=== PATIENT | female | born 2000 | race African-American/Black ===

== ENCOUNTER 2020-12-16 10:16 | Outpatient (CLI) | payer OTHER, SELFPAY ==
--- NOTE | ~2020-12-16 | US_ITS ---
EXAMINATION: US OB <= 14 weeks fetus DATE: 12/16/2020 10:47 INDICATION: Encounter for supervision of normal . TECHNIQUE: Real-time transabdominal pelvic ultrasound was performed. COMPARISON: None. FINDINGS: The uterus measures 9.9 x 8.9 x 8.1 cm. There is an intrauterine gestational sac. A yolk sac is iden tified. The crown rump length measures 4.0 cm, which correlates with an estimated gestational age of 11 weeks and 0 day(s) (+/-) 1 week(s) and 0 day(s). heart motion is identified measuring 159 beats per minute (bpm) by M-mode Doppler. The ovaries are not visualized. There is no free fluid in the pelvis. IMPRESSION: 1. Single living intrauterine gestation with estimated date of delivery of 07/07/2021. Reviewed, dictated and finalized at location A. IMPRESSION: 1. Single living intrauterine gestation with estimated date of delivery of 06/18.
== END 2020-12-16 10:17 | disposition home or self-care (01) ==
PROVIDERS: PCP Pediatrics; Visit Provider Physician Assistant
DX: Z34.91 Encounter for supervision of normal pregnancy, unspecified, first trimester (principal)
CPT/HCPCS: 76801

== ENCOUNTER 2020-12-26 16:28 | Emergency (ER) | payer OTHER, SELFPAY ==
[2020-12-26 17:03] VITALS: BP 112/75; PULSE 104; RESP 16; TEMP 36.6; O2SAT 100
[2020-12-26 17:19] LABS: Basophils Percent Auto 0.2 % (0.2-1.2); Eosinophils Percent Auto 0.7 % (0-4.4); Hematocrit 32.1 % (37.0-47.0); Hemoglobin 9.9 g/dL (12.0-15.0); Immature Granulocyte Absolute 0.01 K/mm3 (0.00-0.031); Immature Granulocyte Percent A 0.2 % (0-0.5); Lymphocytes Absolute Auto 1.34 K/mm3 (0.9-3.2); Lymphocytes Percent Auto 22.6 % (18.3-44.2); Mean Corpuscular HGB Conc 30.8 g/dl (32-36); Mean Corpuscular Volume 84.3 fl (80-100); Mean Platelet Volume 9.6 fl (7.4-10.4); Monocytes Absolute Auto 0.4 K/mm3 (0.1-0.6); Monocytes Percent Auto 5.9 % (2.6-8.5); Neutrophils Absolute Auto 4.2 K/mm3 (1.3-6.7); Neutrophils Percent Auto 70.4 % (45.5-73.1); Platelet Count Result 257 k/mm3 (150-375); Red Blood Count 3.81 M/mm3 (4.2-5.4); Red Cell Distribution Width 15.5 % (11.5-14.5); White Blood Count 5.9 K/mm3 (4.5-10.0)
[2020-12-26 17:32] LABS: Alanine Aminotransferase 17 U/L (4-35); Alkaline Phosphatase 52 U/L (38-126); Anion Gap 7 mmol/L (8-16); Aspartate Amino Transferase 25 U/L (14-36); Bilirubin,Total 0.2 mg/dL (0.2-1.3); Blood Urea Nitrogen 7 mg/dL (7-17); Calcium 9.2 mg/dL (8.4-10.2); Carbon Dioxide 21 mmol/L (22-30); Chloride 105 mmol/L (98-107); Estimated Glomerular Filt Rate > 60; Glucose 148 mg/dL (65-110); Lipase 83 U/L (23-300); Potassium 3.5 mmol/L (3.4-5.0); Sodium 133 mmol/L (137-145)
--- NOTE | 2020-12-26 19:09 | PC.NURSE ---
patient states that she cant wait any longer to be see, left triage area
== END 2020-12-26 19:09 | disposition left against medical advice (07) ==
PROVIDERS: Emergency Provider Emergency Medicine; PCP Pediatrics
DX: R42 Dizziness and giddiness (principal)
CPT/HCPCS: 36415; 80053; 83690; 84702; 85025; 99199

== ENCOUNTER 2021-04-27 16:10 | Observation (INO) | payer OTHER, SELFPAY ==
[2021-04-27] VITALS (21 sets, daily range): BP systolic 98–120; BP diastolic 56–98; PULSE 32–124; O2SAT 85–100; BMI 23.1
--- NOTE | 2021-04-27 17:04 | OBADM ---
This patient, Marquise Morales, admitted to the OB room OB Post 115 for observation. Patient/family oriented to hospital policies and general routines including ID bracelet, bed and alarms, visiting hours, pain management, procedures, bathroom and other care routines, personal items, smoking policy, room service/diet, and visiting hours. Patient/Family are encouraged to report perceived risks to care and to ask questions if they do not understand what they are told or what they should do.
[2021-04-27] MEDS: TERBUTALINE SULFATE 1 MG/ML VIAL 0.25 MG SUB-Q (17:44)
[2021-04-27 17:53] LABS: Add Urine Microscopic? YES; Appearance Urine Cloudy (Clear); Bacteria Urine Trace /hpf; Bilirubin Urine Negative (Negative); Blood Urine Negative (Negative); Color Urine Straw (Yellow); Glucose Urine UA Negative (Negative); Ketones Urine Negative (Negative); Leukocyte Esterase Ur Negative LEU/UL (Negative); Mucus Urine Rare /lpf; Nitrate Urine Negative (Negative); Protein Urine Negative (Negative); RBC Urine 0-2 /hpf (0-2); Specific Grav Ur 1.002 (1.001-1.035); Squamous Epithelial Cell Urine Many /hpf (Few); Urobilinogen Urine Negative mg/dL (<2.0); WBC Urine 0-3 /hpf
--- NOTE | 2021-05-22 07:42 | P.PNOB_ITS ---
OB - Triage/Final Diagnosis Visit Information Comments/Additional reasons for admission: I have assessed the risk for this patient, Marquise Morales, and determined that she would benefit from observation care. Evaluation Laboratory results: Laboratory Tests 04/27/21 17:33 Urine Color Straw Urine Appearance Cloudy H Urine pH 6.0 Ur Specific [place] 1.002 Urine Protein Negative Urine Glucose (UA) Negative Urine Ketones Negative Ur Blood (Man) Negative Urine Nitrate Negative Urine Bilirubin Negative Urine Urobilinogen Negative Leukocyte Esterase Rfl Negative Urine RBC 0-2 Urine WBC 0-3 Ur Squamous Epith Cells Many H Urine Bacteria Trace Urine Mucus Rare Final Diagnosis (1) False labor: Code(s): O47.9 - False labor, unspecified Status: Acute
== END 2021-04-27 19:07 | disposition home or self-care (01) ==
PROVIDERS: Advanced Practice Midwife; Admitting Provider Obstetrics & Gynecology; Visit Provider Obstetrics & Gynecology
DX: O47.03 False labor before 37 completed weeks of gestation, third trimester (principal); Z3A.29 29 weeks gestation of pregnancy
CPT/HCPCS: 81001; 96372; G0378; G0379; J3105

== ENCOUNTER 2021-06-09 15:16 | Observation (INO) | payer OTHER, SELFPAY ==
[2021-06-09 15:41] VITALS: BMI 24.5
--- NOTE | 2021-06-09 15:42 | OBADM ---
This patient, Marquise Morales, admitted to the OB room OB Post 113 for observation. Patient/family oriented to hospital policies and general routines including ID bracelet, bed and alarms, visiting hours, pain management, procedures, bathroom and other care routines, personal items, smoking policy, room service/diet, and visiting hours. Patient/Family are encouraged to report perceived risks to care and to ask questions if they do not understand what they are told or what they should do.
[2021-06-09 15:46] VITALS: BP 107/63; PULSE 114
[2021-06-09 16:00] VITALS: BP 109/61; PULSE 116
[2021-06-09 16:18] LABS: Add Urine Microscopic? YES; Appearance Urine Cloudy (Clear); Bilirubin Urine Negative (Negative); Blood Urine Negative (Negative); Color Urine Yellow (Yellow); Glucose Urine UA Negative (Negative); Ketones Urine Negative (Negative); Leukocyte Esterase Ur Negative LEU/UL (NEGATIVE); Mucus Urine Rare /lpf; Nitrate Urine Negative (Negative); Protein Urine Negative (Negative); RBC Urine 0-2 /hpf (0-2); Specific Grav Ur 1.017 (1.001-1.035); Squamous Epithelial Cell Urine Many /hpf (Few); Transitional Epi Cells Urine Rare /hpf (None Seen); Urobilinogen Urine Negative mg/dL (<2.0)
--- NOTE | 2021-06-09 16:39 | PC.NURSE ---
0510- SPoke with Dr. Ojeda, reviewed contractions and UA results. Orders to check cervix and send home if not a laboring cervix
--- NOTE | 2021-06-17 16:37 | P.PNOB_ITS ---
OB - Triage/Final Diagnosis Visit Information Comments/Additional reasons for admission: I have assessed the risk for this patient, Marquise Morales, and determined that she would benefit from observation care. Evaluation Laboratory results: Laboratory Tests 06/09/21 16:04 Urine Color Yellow Urine Appearance Cloudy H Urine pH 7.0 Ur Specific [place] 1.017 Urine Protein Negative Urine Glucose (UA) Negative Urine Ketones Negative Ur Blood (Man) Negative Urine Nitrate Negative Urine Bilirubin Negative Urine Urobilinogen Negative Ur Leukocyte Esterase Negative Urine RBC 0-2 Urine WBC 4-6 H Ur Squamous Epith Cells Many H Ur Transition Epith Cell Rare Urine Mucus Rare Final Diagnosis (1) False labor: Code(s): O47.9 - False labor, unspecified Status: Acute
== END 2021-06-09 16:40 | disposition home or self-care (01) ==
PROVIDERS: Admitting Provider Obstetrics & Gynecology; Visit Provider Obstetrics & Gynecology
DX: O47.03 False labor before 37 completed weeks of gestation, third trimester (principal); Z3A.35 35 weeks gestation of pregnancy
CPT/HCPCS: 81001; 87086; 87088; G0378; G0379

== ENCOUNTER 2021-07-08 06:24 | Inpatient (IN) | payer OTHER, SELFPAY ==
[2021-07-08] VITALS (152 sets, daily range): BP systolic 96–160; BP diastolic 41–106; PULSE 79–121; RESP 16–18; TEMP 36.4–36.9; O2SAT 76–100; BMI 24.5
--- OUTSIDE RECORDS SUMMARY | 2021-07-08 06:29 | XMS_ITS | Encounter Summary ---
:2000 Author Care Team Providers Name Role Phone Carolin Amaro MD Primary Care Provider [phone] Reason for Visit OB visit Assessment and Plan 1. Herpes simplex ? Valtrex 1 gram tablet 2. Routine care Discussion Note: None recorded.Patient educational handouts: No information available. Plan of Care Reminders Provider Appointments None ? ? recorded. Lab None ? ? recorded. Referral None ? ? recorded. Procedures None ? ? recorded. Surgeries None ? ? recorded. Imaging None ? ? recorded. Medications Name Start Date ? ? metoclopramide 5 mg tablet ? ondansetron HCl 4 mg tablet ? 28 mg iron-800 mcg tablet ? valacyclovir 1 gram tablet ? Take 1 tablet every day by oral route. Medications Administered None recorded. Vitals Height Weight BMI Blood Pressure 4 ft 9 in 121 lbs 26.2 kg/m2 100/65 mm[Hg] Results Lab Results None recorded. Allergies Code Code System Name Reaction Severity Onset Chocolate Flavor ? ? ? Problems Name Status Ons
--- OUTSIDE RECORDS SUMMARY | 2021-07-08 06:29 | XMS_ITS | Encounter Summary ---
:2000 Author Care Team Providers Name Role Phone Carolin Amaro MD Primary Care Provider [phone] Reason for Visit OB visit Assessment and Plan 1. Routine care 2. Herpes simplex Discussion Note: None recorded.Patient educational handouts: No [...] BMI Blood Pressure 4 ft 9 in 125 lbs 27 kg/m2 110/71 mm[Hg] Results Lab Results None recorded. Allergies Code Code System Name Reaction Severity Onset Chocolate Flavor ? ? ? Problems Name Status Onset Date Source ?
--- OUTSIDE RECORDS SUMMARY | 2021-07-08 06:29 | XMS_ITS ---
:2000 Author Care Team Providers Name Role Phone VILMA HUGHES MD Primary Care Provider [phone] Allergies Code Code System Name Reaction Severity Status Onset Chocolate ? ? Active ? Flavor Medications Name Status Start Date Stop Date ? ? cephalexin 500 mg capsule Completed ? 2020 fluconazole 150 mg tablet Completed ? 2020 metoclopramide 5 mg tablet Active ? Not a vailable metronidazole 0.75 % vaginal gel Completed ? 12/27/2020 metronidazole 500 mg tablet Completed ? 12/15 Nexplanon 68 mg subdermal Completed 06/21/20152015 implant ondansetron HCl 4 mg tablet Active ? Not available 28 mg iron-800 mcg Active ? Not available tablet valacyclovir 1 gram tablet Active ? Not a vailable Problems Name Status Onset Date Source ? Counseling Unknown 12/29/2013 History Insertion of Subcutaneous Unknown 06/21/2015 Histor y Contraceptive SNOMED CT Concept Unknown 06/21/2015 History Alopecia Unknown 03/27/2016 History Procedure Unknown 03/27/2016 History Unknown 12/27/2020 ? Herpes Simplex Active ? ? Vomiting of Active ? ? Uterine Size for Dates Discrepancy Active ? ? SARS-CoV-2 Active ? ? Procedures Date Name Performed by ?
--- OUTSIDE RECORDS SUMMARY | 2021-07-08 06:29 | XMS_ITS | Encounter Summary ---
:2000 Author Care Team Providers Name Role Phone Carolin Amaro MD Primary Care Provider [phone] Reason for Visit OB visit Assessment and Plan 1. Routine care Discussion Note: None recorded.Patient educational [...] BMI Blood Pressure 4 ft 9 in 123 lbs 26.6 kg/m2 104/69 mm[Hg] Results Lab Results None recorded. Allergies Code Code System Name Reaction Severity Onset Chocolate Flavor ? ? ? Problems Name Status Onset Date Source ? Herpes Simplex Active
--- OUTSIDE RECORDS SUMMARY | 2021-07-08 06:30 | XMS_ITS | Encounter Summary ---
:2000 Author Care Team Providers Name Role Phone Carolin Amaro MD Primary Care Provider [phone] Reason for Visit OB visit Assessment and Plan 1. Anemia of 2. Routine care Discussion Note: None recorded.Patient [...] BMI Blood Pressure 4 ft 9 in 113 lbs 24.5 kg/m2 100/68 mm[Hg] Results Lab Results None recorded. Allergies Code Code System Name Reaction Severity Onset Chocolate Flavor ? ? ? Problems Name Status Onset Date Source ?
--- OUTSIDE RECORDS SUMMARY | 2021-07-08 06:30 | XMS_ITS | Encounter Summary ---
:2000 Author Care Team Providers Name Role Phone Carolin Amaro MD Primary Care Provider [phone] Reason for Visit None recorded. Assessment and Plan 1. Uterine size for dates discre pancy ? US, obstetric, follow-up Discussion Note: None recorded.Patient educational handouts: No information available. Plan of Care Reminders Provider Appointments None ? ? recorded. Lab None ? ? recorded. Referral None ? ? recorded. Procedures None ? ? recorded. Surgeries None ? ? recorded. Imaging US, 05/21/2021 [place] [facility], Follow-up Medications Name Start Date ? ? metoclopramide 5 mg tablet ? ondansetron HCl 4 mg tablet ? 28 mg iron-800 mcg tablet ? valacyclovir 1 gram tablet ? Take 1 tablet every day by oral route. Medications Administered None recorded. Vitals None recorded. Results Lab Results None recorded. Allergies Code Code System Name Reaction Severity Onset Chocolate Flavor ? ? ? Problems Name Status Onset Date Source ? Herpes S
--- OUTSIDE RECORDS SUMMARY | 2021-07-08 06:30 | XMS_ITS | Encounter Summary ---
:2000 Author Care Team Providers Name Role Phone Carolin Amaro MD Primary Care Provider [phone] Reason for Visit OB visit Assessment and Plan 1. Uterine size for dates discre pancy 2. Routine care Discussion Note: None recorded.Patient [...] BMI Blood Pressure 4 ft 9 in 111 lbs 24 kg/m2 105/69 mm[Hg] Results Lab Results None recorded. Allergies Code Code System Name Reaction Severity Onset Chocolate Flavor ? ? ? Problems Name Status Onset Date Source ?
--- OUTSIDE RECORDS SUMMARY | 2021-07-08 06:30 | XMS_ITS | Encounter Summary ---
:2000 Author Care Team Providers Name Role Phone Carolin Amaro MD Primary Care Provider [phone] Reason for Visit None recorded. Assessment and Plan 1. Oligohydramnios ? US, obstetric, limited Discussion Note: None recorded.Patient educational handouts: No information available. Plan of Care Reminders Provider Appointments None ? ? recorded. Lab None ? ? recorded. Referral None ? ? recorded. Procedures None ? ? recorded. Surgeries None ? ? recorded. Imaging US, [place] [facility], Limited 05/28/2021 Medications Name Start Date ? ? metoclopramide [...]
--- OUTSIDE RECORDS SUMMARY | 2021-07-08 06:30 | XMS_ITS | Encounter Summary ---
:2000 Author Care Team Providers Name Role Phone Carolin Amaro MD Primary Care Provider [phone] Reason for Visit OB visit Assessment and Plan 1. Uterine size for dates discre pancy 2. SARS-CoV-2 3. Herpes simplex Discussion Note: None recorded.Patient educational [...] BMI Blood Pressure 4 ft 9 in 117 lbs 25.3 kg/m2 98/65 mm[Hg] Results Lab Results None recorded. Allergies Code Code System Name Reaction Severity Onset Chocolate Flavor ? ? ? Problems Name Status Ons
--- OUTSIDE RECORDS SUMMARY | 2021-07-08 06:30 | XMS_ITS | Encounter Summary ---
:2000 Author Care Team Providers Name Role Phone Carolin Amaro MD Primary Care Provider [phone] Reason for Visit None recorded. Assessment and Plan 1. Pre-existing maternal disease complicating ? US, obstetric, follow-up Discussion Note: None recorded.Patient educational handouts: No information available. Plan of Care Reminders Provider Appointments None ? ? recorded. Lab None ? ? recorded. Referral None ? ? recorded. Procedures None ? ? recorded. Surgeries None ? ? recorded. Imaging US, 06/11/2021 [place] [facility], Follow-up Medications Name Start Date ? [...]
--- OUTSIDE RECORDS SUMMARY | 2021-07-08 06:30 | XMS_ITS | Encounter Summary ---
:2000 Author Care Team Providers Name Role Phone Carolin Amaro MD Primary Care Provider [phone] Reason for Visit OB visit Assessment and Plan 1. Routine care 2. SARS-CoV-2 3. Herpes simplex Discussion Note: [...] BMI Blood Pressure 4 ft 9 in 120 lbs 26 kg/m2 101/67 mm[Hg] Results Lab Results None recorded. Allergies Code Code System Name Reaction Severity Onset Chocolate Flavor ? ? ? Problems Name Status Onset Date Sour
--- NOTE | 2021-07-08 06:37 | P.PNAN_ITS ---
Anes - Eval Pre Procedure Procedure: labor epidural Date/Time: 07/08/21 06:37 Surgeon: anca Preop Diagnosis: pain during labor Pre Op Diagnosis: iol Patient Data Age: 20 Gender: F Height: Weight: Allergies Allergy/AdvReac Type Severity Reaction Status Date / Time chocolate flavor Allergy Swelling Verified 06/18/21 14:05 Home Medications Medication Instructions Recorded Confirmed Type [id number] fum-folic [id number] 1 pkg PO DAILY 04/27/21 06/09/21 History Patient hx anesthesia problems: none Family hx anesthesia problems: none Results Review: All pre-operative results and documents have been reviewed as part of the pre-operative evaluation. [facility] Family History Family History (Updated 06/18/21 @ 14:16 by Sarah Snow RN) Grandparent Diabetes mellitus Anemia Mother Epilepsy Social History Social History Substance use: never Spiritual care concerns: No Exam Day of Procedure 07/08/21 06:37
--- NOTE | 2021-07-08 06:42 | LDADM ---
This patient, Marquise Morales, was admitted to Labor/Delivery/Recovery 106 on 07/08/21 at 06:24. Plans for labor, pain management and were discussed with patient. Patient/family oriented to hospital policies and general routines including ID bracelet, bed and alarms, visiting hours, pain management, procedures, bathroom and other care routines, personal items, smoking policy, room service/diet and guest tray routines, security routines, and visiting hours. Patient/Family are encouraged to report perceived risks to care and to ask questions if they do not understand what they are told or what they should do. See OBIX for further documentation.
[2021-07-08] MEDS: LACTATED RINGERS 1,000 ML 125 ML IV CONT ×4 (06:59→22:44)
[2021-07-08] MEDS: OXYTOCIN 30 UNITS/NS 500 ML 30 UNITS/500 ML BAG IV CONT (07:11)
[2021-07-08 07:19] LABS: Basophils Percent Auto 0.3 % (0.2-1.2); Eosinophils Absolute Auto 0.2 K/mm3 (0-0.3); Eosinophils Percent Auto 2.4 % (0-4.4); Hematocrit 32.9 % (37.0-47.0); Hemoglobin 10.7 g/dL (12.0-15.0); Immature Granulocyte Absolute 0.08 K/mm3 (0.00-0.031); Immature Granulocyte Percent A 1.2 % (0-0.5); Lymphocytes Absolute Auto 1.95 K/mm3 (0.9-3.2); Lymphocytes Percent Auto 28.8 % (18.3-44.2); Mean Corpuscular HGB Conc 32.5 g/dl (32-36); Mean Corpuscular Hemoglobin 27.2 pg (26-34); Mean Corpuscular Volume 83.7 fl (80-100); Mean Platelet Volume 10.6 fl (7.4-10.4); Monocytes Absolute Auto 0.6 K/mm3 (0.1-0.6); Neutrophils Percent Auto 58.3 % (45.5-73.1); Platelet Count Result 177 k/mm3 (150-375); Red Blood Count 3.93 M/mm3 (4.2-5.4); Red Cell Distribution Width 22.2 % (11.5-14.5); White Blood Count 6.8 K/mm3 (4.5-10.0)
--- NOTE | 2021-07-08 07:44 | PM.IMHP ---
H&P: HPI History of Present Illness Date/Time: 07/08/21 07:44 Chief Complaint: induction of labor Narrative: Marquise is a 20yo G1 at 40.0 who presented for scheduled induction reporting her water started leaking yesterday afternoon. Irregular ctx. GBS neg. complicated by HSV2, COVID x2 this , and anemia. Review of Systems Review of Systems: All systems reviewed & are unremarkable except as noted in HPI and below PMFSH Family History Family History (Updated 06/18/21 @ 14:16 by Sarah Snow RN) Grandparent Diabetes mellitus Anemia Mother Epilepsy Social History Social History Smoking status: Never smoker Substance use: never Spiritual care concerns: No Meds Home Medications and Allergies Home Medications Medication Instructions Recorded Confirmed Type [id number] fum-folic ac-om3 1 pkg PO DAILY 04/27/21 06/09/21 History valacyclovir 07/08/21 History Allergies Allergy/AdvReac Type Severity Reaction Status Date / Time chocolate flavor Allergy Swelling Verified 06/18/21 14:05 Vital Signs Vital Signs - 24 hr 07/08/21 07:00 07/08/21 07:16 07/08/21 07:17 Temperature 98.2 F Pulse Rate 103 H 102 H Blood Pressure 114/70 114/60 07/08/21 07:31 Temperature Pulse Rate 96 Blood Pressure 116/66 Exam Const: General: no acute distress Resp: Effort & Inspection: normal respiratory effort Auscultation: clear to auscultation bilaterally Cardio: Rate: regular rate Rhythm: regular rhythm GI: GI Palp: Yes Soft to palpation Extrem: General: normal to inspection H&P: Results Labs Labs: Short CBC 07/08/21 Range/Units 06:58 WBC 6.8 (4.5-10.0) K/mm3 Hgb 10.7 L (12.0-15.0) g/dL Hct 32.9 L (37.0-47.0) % Plt Count 177 (150-375) k/mm3 Assessment and Plan Additional Plan Here for induction of labor- pitocin GBS neg SROM yesterday afternoon- abx to start this am at 18h FHT category 1
[2021-07-08] MEDS: AMPICILLIN 2 GM/NS 100 ML 2 GM/100 ML BAG IVPB (11:02)
--- NOTE | 2021-07-08 13:25 | PM.OBPNLAB ---
Pain Control Date/time seen: 07/08/21 13:25 Pt doing well Cervix 3cm AROM of forebag
[2021-07-08] MEDS: AMPICILLIN 1 GM/NS 50 ML 1 GM/50 ML BAG IVPB ×3 (14:43→22:44)
[2021-07-08] MEDS: ONDANSETRON INJ 4 MG/2 ML VIAL IV PUSH (16:06)
[2021-07-09] VITALS (163 sets, daily range): BP systolic 87–139; BP diastolic 35–98; PULSE 80–184; RESP 16–20; TEMP 36.4–38.2; O2SAT 79–100
[2021-07-09] MEDS: OXYTOCIN 30 UNITS/NS 500 ML 30 UNITS/500 ML BAG 6 UNITS IV CONT (02:08)
[2021-07-09] MEDS: AMPICILLIN 1 GM/NS 50 ML 1 GM/50 ML BAG IVPB ×2 (02:36→06:47)
[2021-07-09] MEDS: METHYLERGONOVINE MALEATE 0.2 MG/ML VIAL IM (09:25)
[2021-07-09] MEDS: CARBOPROST TROMETHAMINE 250 MCG/ML AMPUL IM (09:30)
[2021-07-09] MEDS: miSOPROStol 200 MCG TABLET 800 MCG RECTAL (09:31)
[2021-07-09] MEDS: ONDANSETRON INJ 4 MG/2 ML VIAL IV PUSH (09:43)
--- NOTE | 2021-07-09 09:46 | P.PCNOB_ITS ---
OB - Delivery Note Procedure Delivery date: 07/09/21 Procedure: Events: Elective Induction of Labor Induction method: AROM and Per Pitocin Protocol Delivery monitor: External FHT and Internal Uterine Route of delivery: Episiotomy description: None Laceration Description: Perineal - 1st Degree Delivery repair: vicryl Specimen: No Quantitative Blood Loss (ml): 1,140 (Atony treated with pitocin, cytotec, hemabate, methergine.) Anesthesia type: Epidural Disposition: floor Narrative: With adequate expulsive efforts by the mother, the baby's head was delivered OA. The baby's anterior shoulder was delivered under the pubic symphysis without difficulty. The posterior shoulder and the rest of the baby delivered without difficulty. The was placed on the mothers chest and suctioned and stimulated. The cord was clamped and cut after 30 seconds. Mother and baby both stable. The placenta delivered spontaneously, followed by a large gush of blood. Bleeding remained brisk with fundal massage and pitocin initiation. Lower segment continued to be boggy and bleed. hemorrhage treated with pitocin, methergine, cytotec, and hemabate with drastic improvement at around 20 minutes after delivery. QBL 1140cc. [place] Baby Date of : 07/09/21 Time of : 09:15 Weeks of gestation at delivery: 40 gender: Male Weight (pounds): 7 Weight (ounces): 5 presentation: vertex position: Other (terminal meconium noted) Placenta delivery description: Spontaneous Cord Vessel Description: 3 Vessels, Nuchal Cord, Clamped/Cut and Other score one minute: 6 score five minutes: 8
[2021-07-09] MEDS: OXYTOCIN 30 UNITS/NS 500 ML 30 UNITS/500 ML BAG 125 UNITS IV CONT (09:52)
[2021-07-09] MEDS: LACTATED RINGERS 1,000 ML 125 ML IV CONT (09:53)
[2021-07-09 11:09] LABS: Hematocrit 28.2 % (37.0-47.0); Hemoglobin 8.9 g/dL (12.0-15.0); Mean Corpuscular HGB Conc 31.6 g/dl (32-36); Mean Corpuscular Hemoglobin 27.4 pg (26-34); Mean Corpuscular Volume 86.8 fl (80-100); Mean Platelet Volume 10.8 fl (7.4-10.4); Platelet Count Result 149 k/mm3 (150-375); Red Blood Count 3.25 M/mm3 (4.2-5.4); Red Cell Distribution Width 22.2 % (11.5-14.5); White Blood Count 15.2 K/mm3 (4.5-10.0)
[2021-07-09] MEDS: BENZOCAINE 20% AER SPR (*SP) 56 GM CAN 1 SPRAY TOPICAL (12:00)
[2021-07-09] MEDS: WITCH HAZEL 40 PADS 1 PAD TOPICAL (12:00)
[2021-07-09] MEDS: IBUPROFEN 600 MG TABLET PO (13:57)
[2021-07-09 14:52] LABS: Rapid Plasma Reagin Non-Reactive (NonReactive)
[2021-07-09] MEDS: LANOLIN (LANSINOH) 7.5 GM CREAM 1 APPLIC TOPICAL (14:56)
[2021-07-09] MEDS: LACTATED RINGERS 1,000 ML 125 ML (16:00)
[2021-07-09] MEDS: POLYSACCHARIDE IRON COMPLEX 150 MG CAPSULE PO (16:02)
[2021-07-09] MEDS: ACETAMINOPHEN 325 MG TABLET 650 MG PO ×2 (16:02→23:37)
[2021-07-09] MEDS: DOCUSATE SODIUM 100 MG CAPSULE PO (16:02)
[2021-07-09 17:52] LABS: Hematocrit 23.6 % (37.0-47.0); Hemoglobin 7.5 g/dL (12.0-15.0)
--- NOTE | 2021-07-09 20:55 | PC.NURSE ---
Called Blood Bank to check on status of blood, no answer. Called back on different blood bank number and still no answer after 8 rings.
--- NOTE | 2021-07-09 21:00 | PC.NURSE ---
Called the lab number and after 4 rings got ahold of someone and asked if someone was working in blood bank [facility] and she stated yes, told her about the order and she asked when the order was placed, I responded with 1814 and she said well then we must be waiting on a type and screen, I told her that one had been done on the patient and she then stated she would start working on the order.
[2021-07-09] MEDS: TUBING, BLOOD PLUM PUMP TUBING 1 EACH XX (22:38)
[2021-07-09] MEDS: SODIUM CHLORIDE 0.9% IV 250 ML 30 ML IV CONT (22:38)
[2021-07-09] MEDS: diphenhydrAMINE HCl INJ 50 MG/ML VIAL 25 MG IV PUSH (22:52)
[2021-07-10] VITALS (8 sets, daily range): BP systolic 93–111; BP diastolic 53–70; PULSE 74–100; RESP 16–22; TEMP 36.6–38.2; O2SAT 97–100
[2021-07-10] MEDS: diphenhydrAMINE HCl INJ 50 MG/ML VIAL (02:17)
[2021-07-10] MEDS: IBUPROFEN 600 MG TABLET PO ×3 (02:21→17:25)
[2021-07-10 05:43] LABS: Hematocrit 26.9 % (37.0-47.0); Hemoglobin 8.9 g/dL (12.0-15.0)
--- NOTE | 2021-07-10 07:39 | PM.OBPNVD ---
OB - PN: Subj Subjective Date/time seen: 07/10/21 07:39 Patient comments: no complaints baby status: doing well OB - PN: Obj Data Labs CBC & Chem 7: 07/10/21 05:34 Labs: Laboratory Results - last 24 hr 07/08/21 07/08/21 07/09/21 06:58 06:58 10:52 WBC 15.2 H RBC 3.25 L Hgb 8.9 L Hct 28.2 L MCV 86.8 MCH 27.4 MCHC 31.6 L RDW 22.2 H Plt Count 149 L MPV 10.8 H RPR Non-reactive Blood Type O Positive Antibody Screen Negative Crossmatch See Detail 07/09/21 07/10/21 17:41 05:34 WBC RBC Hgb 7.5 L 8.9 L Hct 23.6 L 26.9 L MCV MCH MCHC RDW Plt Count MPV RPR Blood Type Antibody Screen Crossmatch OB - PN A/P Plan day: 1 Plan: routine care Comments: Doing well. Energy has improved since transfusion. Time Spent With Patient Time: Total time spent is greater than 50% in coordination of care (as documented) at patient's floor/unit and/or counseling patient: Time with patient: less than 15 minutes Review of Systems Review of Systems: All systems reviewed & are unremarkable except as noted in HPI and below Exam Narrative: Fundus firm and vaginal flow controlled. No lower ext redness, warmth, or edema. Negative homans. Const: General: comfortable Chest: Breast/axilla inspection: normal inspection of the breasts Resp: Effort & Inspection: normal respiratory effort Cardio: Rate: regular rate GI: GI Palp: Yes Soft to palpation Psych: Appearance: grossly normal Affect: normal affect Attitude: cooperative Thought content: Yes Normal thought content present Judgement: Good judgement present (Psych)
--- NOTE | 2021-07-10 08:00 | PC.NURSE ---
PT introductions made and plan of care discussed per post , pain management, breast and bottle feeding, daily care activities. PT and her mom both recipient of such instructions this shift. No barriers to learning identified. PT received such instructions via one to one discussion, mom baby care guide and demonstrations. PT verbalized understanding of such care.
[2021-07-10] MEDS: DOCUSATE SODIUM 100 MG CAPSULE PO ×2 (11:24→17:24)
[2021-07-10] MEDS: MULTIVIT/MIN/PREN/FOL AC/IRON TABLET 1 TAB PO (11:24)
[2021-07-10] MEDS: POLYSACCHARIDE IRON COMPLEX 150 MG CAPSULE PO ×2 (11:26→17:24)
[2021-07-10] MEDS: ACETAMINOPHEN 325 MG TABLET 650 MG PO ×2 (11:26→17:26)
--- NOTE | 2021-07-10 11:51 | WPDANLDPN2 ---
Anes-Prog Note L&D Date/Time: 07/10/21 11:51 Comfortable throughout: labor and delivery Neuraxial method: epidural Epidural/Spinal procedure site: clean & non-tender Neuro status: Neuro function grossly intact. Cardiovascular status: normal Respiratory status: normal Airway patency: baseline Mental status: baseline Post-Op hydration status: normal Vital Signs: Last Vital Signs Temp 36.6 C 07/10/21 08:05 Pulse 83 07/10/21 08:05 Resp 18 07/10/21 08:05 BP 110/65 07/10/21 08:05 Pulse Ox 100 07/10/21 08:05 Pain score (VAS): 3 I/O: Intake & Output 07/09/21 07/10/21 07/10/21 23:59 07:59 15:59 Intake Total 615 700 Balance 615 700 Post-procedural complaints: none Patient feedback: Patient satisfied with anesthetic care.
--- NOTE | 2021-07-10 15:14 | PC.NURSE ---
[id number] Introductions were made and mother led discussion on her desires and goals. is in the nursery for assessment. Mother states she wants to attempt baby to breast has not put baby to breast yet. Resources reviewed using latch and feeding cues using the visual handout, mom and baby guide and guide to . Mother has pumped some colostrum and has it prepared in a syringe to feed to the infant when he comes back to her. Encouraged mother to call for assistance when is with her skin to skin demonstrating feeding cues. [id number] Infant latch effectively to the left breast in the cross cradle position. After 5-7 min was detached to assess the nipple due repositioning and mother had some discomfort. Nipple was not misshaped. RN assisted in an optimal latch on the right breast in football position and maintained latch with no discomfort to mother. Mother works well with her infant. Reviewed good handwashing when working with , breast, nipples and how to protect the nipples with a deep latch. Encouraged understanding the benefits of skin to skin, responding to feeding cues, frequencies of feeding 8-12 times in 24 hours (approximately 2-3 hours), duration of feedings, milk production, intake/output feeding sheet and signs of adequate intake. Discussed stimulating with skin to skin, hand expressing colostrum, touch and talking to infant to encourage eating at the breast. Reviewed positioning and alignment, supporting breast, off-centered (asymmetrical latch) and leading with the chin with big open wide gape. Education given to mother of how to visualize suck/swallow ratios and drinking at the breast. Nipple care, comfort and healing with warm, wet washcloth to rinse breast and leave to air-dry. Colostrum may be left on nipples to dry but have clean hands when touching the nipple/breast. Resources used to facilitate learning were used from the visual handout/ tool/mom and baby guide. Mother voiced understanding responding to feeding cues, may need to stimulating infant approximately 2-3 hours from the start of the last feeding, calling for assistance if the does not latch or there discomfort . Reported to primary RN.
[2021-07-11] MEDS: IBUPROFEN 600 MG TABLET PO (05:18)
[2021-07-11] MEDS: MULTIVIT/MIN/PREN/FOL AC/IRON TABLET 1 TAB PO (07:36)
[2021-07-11] MEDS: POLYSACCHARIDE IRON COMPLEX 150 MG CAPSULE PO (07:36)
[2021-07-11] MEDS: ACETAMINOPHEN 325 MG TABLET 650 MG PO (07:37)
[2021-07-11] MEDS: DOCUSATE SODIUM 100 MG CAPSULE PO (07:37)
[2021-07-11 07:45] VITALS: BP 110/71; PULSE 76; RESP 18; TEMP 36.5; O2SAT 100
--- NOTE | 2021-07-11 07:45 | PM.OBPNVD ---
OB - PN: Subj Subjective Date/time seen: 07/11/21 07:45 Patient comments: no complaints baby status: doing well Narrative: feeling much better since transfusion, doing well. OB - PN: Obj Data Labs CBC & Chem 7: 07/10/21 05:34 OB - PN A/P Assessment and Plan (1) , delivered: Code(s): O80 - Encounter for full-term uncomplicated delivery Status: Acute (2) Anemia affecting : Code(s): O99.019 - Anemia complicating , unspecified trimester Status: Acute (3) hemorrhage: Code(s): O72.1 - Other immediate hemorrhage Status: Acute Plan day: 2 Plan: routine care and discharge home Comments: continue iron at home. Time Spent With Patient Time: Total time spent is greater than 50% in coordination of care (as documented) at patient's floor/unit and/or counseling patient: Time with patient: less than 15 minutes Exam Narrative: NAD abdomen soft, nontender, fundus firm below the umbilicus Extremities nontender, 1+ edema
--- NOTE | 2021-07-11 07:48 | P.DS_ITS ---
DS: Admitting Diagnosis Discharge Date 07/11/21 Admitting Diagnosis term IUP DS: Discharge Diagnosis Discharge Diagnosis (1) hemorrhage: Code(s): O72.1 - Other immediate hemorrhage Status: Acute (2) , delivered: Code(s): O80 - Encounter for full-term uncomplicated delivery Status: Acute (3) Anemia affecting : Code(s): O99.019 - Anemia complicating , unspecified trimester Status: Acute DS: Summary Hospital Course Hospital Course: Marquise had an uncomplicated labor but a severe hemorrhage. It was treated with multiple medications and resolved. She did receive 2 units of pRBCs. The remainder of her pp course was uncomplicated. Time Spent with Patient Time attestation: Total time spent providing and/or coordinating discharge services: Discharge Plan Discharge Attending physician on discharge: Eva Ojeda Discharging Clinician: Eva Ojdea Anticipated Discharge Date/Time: 07/11/21 07:46 Patient Disposition: Home, Self-Care Activity: pelvic rest Diet: as tolerated Patient Instructions: Antibiotic Form Stand Alone Forms: General Discharge Information Follow-up/Referrals: Eva Ojeda MD [Physician] - 4 Weeks Discharge Medications: Continued [id number] fum-folic [id number] mg-mcg-mg Combo Pack 1 pkg PO DAILY RF: 0 valacyclovir 1 gram tablet RF: 0 Date of admission: 07/08/21 06:24 Primary Care Provider: PHYSICIAN,NATIONAL ACCOUNT MANAGER Admitting Provider: Eva Ojeda Attending physician on admission: Eva Ojeda Condition: Stable
--- NOTE | 2021-07-11 11:17 | PC.NURSE ---
Patient instructed on viewing the discharge video Mother & Baby Care, The First Two Weeks . Patient was given the opportunity and encouraged to ask questions. Patient verbalized understanding of information shared and has been given the mother/baby guide for home reference.
--- NOTE | 2021-07-11 12:04 | PC.NURSE ---
[id number] Mother led the discussion on how has gone so far and what led to supplementing with formula. Mother was encouraged to call for assistance working with infant to optimally latch to the breast since that is still here desired preference to feed her baby. Mother voiced understanding of the information.
--- NOTE | 2021-07-11 12:07 | PC.NURSE ---
[id number] Consulted with patient to assess needs related to . Mother works well with her infant. Reviewed good handwashing when working with infant, breast, nipples and how to protect the nipples with a deep latch. Encouraged understanding the benefits of skin to skin, responding to feeding cues, frequencies of feeding 8-12 times in 24 hours (approximately 2-3 hours), duration of feedings, milk production, intake/output feeding sheet and signs of adequate intake. Discussed stimulating infant with skin to skin, hand expressing colostrum, touch and talking to infant to encourage eating at the breast. Reviewed positioning and alignment, supporting breast, off-centered (asymmetrical latch) and leading with the chin with big open wide gape. Infant is accustomed to drinking a full bottle of formula and is demonstrating the last feeding cue of crying. Mother fed the infant some formula from a bottle to settle infant down since skin to skin was not effective. Once infant had 15 cc of formula, placed skin to skin with mother, burped and started showing early feeding cues (reviewed education with demonstration and feeding cues handout), then was placed in football position at the right breast and latched effectively. Education given to mother of how to visualize suck/swallow ratios and drinking at the breast. Infant maintained latch for 5-7 min with appropriate suck/swallow ratios, then detached. placed vertically on chest and after a few minutes demonstrated feeding cues, then infant attempted to self attach to the left breast. Not able to latch effectively her infant became unsettled, so mother fed the infant 15ml of formula to settle infant and was attempting to latch the the left breast in football position and at this time infant is content to look at his mother. Nipple care, comfort and healing with warm, wet washcloth to rinse breast and leave to air-dry. Colostrum may be left on nipples to dry but have clean hands when touching the nipple/breast. Resources used to facilitate learning were used from the visual handout/ tool/mom and baby guide/ guide. has had appropriate feedings in the past 24 hours and meets the outcomes for weight, output and jaundice. Mother states she feels confident to continue effectively /pumping/supplementing her infant at home. Reviewed production of human milk (pumping at least 8 times in 24 hours 1-2 times at night or effectively breastfeed), transition of milk, signs of adequate intake and engorgement prevention/relief and when to call the care provider using the mom and baby guide. Reviewed community resources and outpatient services as listed in the mom and baby guide/[facility] website. Reinforced watching for feeding cues with responsive feeding and how to stimulate to initiate feeding three hours from the start of the last feeding. Mother voiced understanding of information shared. Reported to primary RN.
[2021-07-14 11:28] VITALS: BP 121/73; PULSE 86; RESP 20; TEMP 37.1; O2SAT 100
== END 2021-07-11 14:01 | disposition home or self-care (01) | DRG 560 ==
LOC: ANHLDR 06:27 → ANHOB2 07-09 13:24
PROVIDERS: Admitting Provider Obstetrics & Gynecology; Visit Provider Obstetrics & Gynecology
DX: O42.92 Full-term premature rupture of membranes, unspecified as to length of time between rupture and onset of labor (principal); Z37.0 Single live birth; Z3A.40 40 weeks gestation of pregnancy; O36.8330 Maternal care for abnormalities of the fetal heart rate or rhythm, third trimester, not applicable or unspecified; O70.0 First degree perineal laceration during delivery; O72.1 Other immediate postpartum hemorrhage; O69.81X0 Labor and delivery complicated by cord around neck, without compression, not applicable or unspecified; O99.02 Anemia complicating childbirth; D64.9 Anemia, unspecified
CPT/HCPCS: 36415; 36430; 84112; 85014; 85018; 85025; 85027; 86592; 86850; 86900; 86901; 86920; A9270; J0290; J1200; J1756; J2210; J2405; J2590; J2795; J7050; J7120; P9016

== ENCOUNTER 2021-12-17 13:43 | Emergency (ER) | payer OTHER, SELFPAY ==
[2021-12-17] VITALS (12 sets, daily range): BP systolic 107–139; BP diastolic 68–89; PULSE 66–83; RESP 13–23; TEMP 36.6; O2SAT 100
--- NOTE | ~2021-12-17 | XR_ITS ---
XR chest 2V DATE: 12/17/2021 15:00 INDICATION: Chest pain, discomfort, shortness of breath TECHNIQUE: PA and lateral views COMPARISON: None FINDINGS: Small bilateral cervical ribs are incidentally noted. There is mild levoscoliosis of the up per thoracic spine. Normal heart size. No hilar or mediastinal enlargement. No pulmonary infiltrate or consolidation, pleural effusion or pulmonary vascular congestion or pneumo thorax. IMPRESSION: No active cardiopulmonary disease Reviewed, dictated and finalized at location B.
--- NOTE | 2021-12-17 15:37 | ECG_ITS ---
Measurements Intervals [place] Rate: 66 P: 59 MA: 126 QRS: 18 QRSD: 81 T: -9 QT: 362 QTc: 381 Interpretive Statements SINUS RHYTHM NONSPECIFIC T-WAVE ABNORMALITY BORDERLINE ECG NO PREVIOUS ECG AVAILABLE FOR COMPARISON Electronically Signed On 12-17-2021 16:11:53 CDT by Marcelo Casillas M.D.
[2021-12-17 16:02] LABS: Basophils Percent Auto 0.3 % (0.2-1.2); Eosinophils Percent Auto 1.2 % (0-4.4); Hematocrit 41.2 % (37.0-47.0); Hemoglobin 12.9 g/dL (12.0-15.0); Lymphocytes Absolute Auto 1.58 K/mm3 (0.9-3.2); Lymphocytes Percent Auto 49.1 % (18.3-44.2); Mean Corpuscular HGB Conc 31.3 g/dl (32-36); Mean Corpuscular Hemoglobin 28.2 pg (26-34); Mean Corpuscular Volume 90.2 fl (80-100); Mean Platelet Volume 9.9 fl (7.4-10.4); Monocytes Absolute Auto 0.2 K/mm3 (0.1-0.6); Monocytes Percent Auto 7.5 % (2.6-8.5); Neutrophils Absolute Auto 1.4 K/mm3 (1.3-6.7); Neutrophils Percent Auto 41.9 % (45.5-73.1); Platelet Count Result 257 k/mm3 (150-375); Red Blood Count 4.57 M/mm3 (4.2-5.4); Red Cell Distribution Width 13.7 % (11.5-14.5); White Blood Count 3.2 K/mm3 (4.5-10.0)
[2021-12-17 16:10] LABS: INR 1.1; Prothrombin Time 13.3 Seconds (11.1-14.7)
--- NOTE | 2021-12-17 16:35 | ED.GENADULT ---
HPI - General Adult General Chief complaint: Unspecified Stated complaint: sharp pain in chest with inspiration - no cough Time Seen by Provider: 12/17/21 15:37 Source: patient Mode of arrival: ambulatory Limitations: no limitations History of Present Illness HPI narrative: This is a 21-year-old female that presents to the emergency department for left-sided back pain present over the last week. Worse with certain movements and deep inspiration. No known injury or trauma. She has not taken anything today yet for pain. Denies fever or shortness of breath. Related Data Home Medications Medication Instructions Recorded Confirmed valacyclovir 1 gram tablet 07/08/21 Allergies Allergy/AdvReac Type Severity Reaction Status Date / Time chocolate flavor Allergy Swelling Verified 12/17/21 15:40 Review of Systems Review of Systems: CONSTITUTIONAL: Denies fever CARDIOVASCULAR: Denies chest pain RESPIRATORY: Denies dyspnea. SKIN: Denies rash MUSCULOSKELETAL: Reports back pain, and myalgia. NEUROLOGIC: Denies numbness, or weakness. All systems reviewed & are unremarkable except as noted in HPI and below PMFSH Past Medical History Medical History (Updated 12/17/21 @ 17:37 by Sarah Reis PA-C) History of anemia Family History Family History (Updated 06/18/21 @ 14:16 by Sarah Snow RN) Grandparent Diabetes mellitus Anemia Mother Epilepsy Social History Social History Smoking status: Never smoker Substance use: never Spiritual care concerns: No Exam Narrative: GENERAL: Well-appearing, well-nourished, and in no acute distress. HEAD: Normocephalic, atraumatic. EYES: EOMI. ENT: Nares clear, no rhinorrhea or epistaxis. Mucous membranes moist. Oropharynx without tonsillar hypertrophy exudate or other lesions. NECK: Supple. No adenopathy or masses. CHEST: Clear to auscultation. No respiratory distress. No wheezes rales or rhonchi HEART: Regular rate and rhythm. No murmur heard. Normal peripheral pulses. BACK: No midline spinal tenderness EXTREMITIES: Normal range of motion. No edema. SKIN: Warm, dry, no rash. NEURO: No focal deficits. Alert and oriented x3. PSYCH: Normal mood and affect Course Vital Signs Vital signs: Vital Signs Temperature 97.9 F 12/17/21 13:47 Pulse Rate 77 12/17/21 13:47 Respiratory Rate 16 12/17/21 13:47 Blood Pressure 139/83 12/17/21 13:47 Pulse Oximetry 100 12/17/21 13:47 Oxygen Delivery Room Air 12/17/21 13:47 Temperature 97.9 F 12/17/21 13:47 Pulse Rate 77 12/17/21 13:47 Respiratory Rate 16 12/17/21 13:47 Blood Pressure 139/83 12/17/21 13:47 Pulse Oximetry 100 12/17/21 13:47 Oxygen Delivery Room Air 12/17/21 13:47 Medical Decision Making MDM Narrative Medical decision making narrative: Patient presents to the emergency department for left-sided mid back pain present over the last week. No recent injury or trauma. Patient is neurologically intact. CBC and metabolic panel without concerning findings. EKG without concerning changes and baseline troponin is negative. D-dimer is not elevated. Bedside test is negative. Chest x-ray without acute cardiopulmonary abnormality. Patient was updated on case findings. She is stable and felt appropriate for further outpatient evaluation. She was given warnings to return to the ER Vital Signs Vital Signs: Vital Signs Temperature 97.9 F 12/17/21 13:47 Pulse Rate 77 12/17/21 13:47 Respiratory Rate 16 12/17/21 13:47 Blood Pressure 139/83 12/17/21 13:47 Pulse Oximetry 100 12/17/21 13:47 Oxygen Delivery Room Air 12/17/21 13:47 Temperature 97.9 F 12/17/21 13:47 Pulse Rate 77 12/17/21 13:47 Respiratory Rate 16 12/17/21 13:47 Blood Pressure 139/83 12/17/21 13:47 Pulse Oximetry 100 12/17/21 13:47 Oxygen Delivery Room Air 12/17/21 13:47 Lab Data Lab results reviewed: Yes I reviewed the patient's lab results. R
[2021-12-17 17:15] LABS: Alanine Aminotransferase 14 U/L (6-35); Albumin Level 4.7 g/dL (3.5-5.1); Alkaline Phosphatase 63 U/L (38-126); Anion Gap 12 mmol/L (8-16); Aspartate Amino Transferase 24 U/L (14-36); Bilirubin,Total 0.5 mg/dL (0.2-1.3); Blood Urea Nitrogen 12 mg/dL (7-17); Calcium 9.4 mg/dL (8.4-10.2); Carbon Dioxide 26 mmol/L (22-30); Chloride 100 mmol/L (98-107); Estimated Glomerular Filt Rate > 60; Glucose 89 mg/dL (65-110); Potassium 3.5 mmol/L (3.4-5.0); Sodium 138 mmol/L (137-145)
[2021-12-17] MEDS: KETOROLAC 30 MG/ML VIAL (*BKC) IM (17:20)
[2021-12-17] MEDS: ACETAMINOPHEN 500 MG TABLET 1000 MG PO (17:21)
[2021-12-17 17:27] LABS: Troponin I < 0.012 ng/mL (0.000-0.034)
[2021-12-17 17:30] LABS: SARS-CoV-2 RNA PCR Negative
== END 2021-12-17 18:02 | disposition home or self-care (01) ==
PROVIDERS: Physician Assistant; Emergency Provider Emergency Medicine
DX: M54.6 Pain in thoracic spine (principal); Z20.822 Contact with and (suspected) exposure to COVID-19
CPT/HCPCS: 36415; 71046; 80053; 81025; 84484; 85025; 85380; 85610; 85730; 93005; 96372; 99284; A9270; C9803; J1885; U0003; U0005